=== PATIENT | female | born 1965 | race Caucasian/White ===

== ENCOUNTER 2017-09-07 14:26 | Emergency (ER) | payer MEDICARE, MEDICAID ==
[2013-08-24 11:40] VITALS: BMI 25.6
[~2017-09-07 14:26] MED LIST: MOBIC7.5 MG PO; NORCO 5/325 TAB1 TA1 PO; PERCOCET 10/3251 TA1 PO; PROZAC20 MG PO
[2017-09-07 15:02] LABS: BASOPHILS 0.2 % (0-2); EOSINOPHILS 1.6 % (0-7); HEMATOCRIT 39.2 % (36.0-48.0); HEMOGLOBIN 13.1 g/dL (12-16); IMMATURE GRANULOCYTES 0.2 % (0-5); LYMPHOCYTES 32.7 % (15-50); MCH 31.3 pg (26.0-34.0); MCHC 33.4 g/dL (31.0-37.0); MCV 93.6 fL (80.0-100.0); MEAN PLATELET VOLUME 11.3 fL (7.4-10.4); MONOCYTES 8.5 % (2-11); NEUTROPHILS 56.8 % (40-80); PLATELET COUNT 208 10x3/uL (130-400); RBC 4.19 10x6/uL (4.00-5.40); RDW 12.5 % (11.5-14.5); WBC 5.8 10x3/uL (4.8-10.8)
[2017-09-07 15:37] LABS: ALBUMIN 3.9 g/dL (3.4-5.0); ALKALINE PHOSPHATASE 107 U/L (46-116); ALT (SGPT) 30 U/L (10-68); BILIRUBIN - TOTAL 0.45 mg/dL (0.2-1.3); CALC OSMOLALITY 277 mosm/kg (275-300); CALCIUM 9.3 mg/dL (8.5-10.1); CARBON DIOXIDE 29.7 mmol/L (21.0-32.0); CHLORIDE - SERUM 104 mmol/L (98-107); CREATININE - SERUM 0.7 mg/dL (0.6-1.3); GLUCOSE 89 mg/dL (74-106); POTASSIUM - SERUM 3.4 mmol/L (3.5-5.1); PROTEIN - SERUM 7.8 g/dL (6.4-8.2); SODIUM 141 mmol/L (136-145); UREA NITROGEN 8 mg/dL (7-18); eGFR NON AFRICAN AMERICAN > 90 mL/min (90-120)
[2017-09-07 15:48] LABS: CKMB 0.8 U/L (0.0-3.6); CREATINE KINASE 108 UL (21-215)
[2017-09-07 16:09] LABS: TROPONIN-I < 0.017 ng/mL (0.000-0.060)
[2017-09-07 16:50] LABS: APPEARANCE CLEAR (CLEAR); BILIRUBIN NEGATIVE (NEGATIVE); COLOR YELLOW (YELLOW); GLUCOSE NEGATIVE (NEGATIVE); KETONE NEGATIVE (NEGATIVE); NITRITE NEGATIVE (NEGATIVE); PROTEIN NEGATIVE (NEGATIVE); UROBILINOGEN NORMAL (NORMAL)
[2017-09-07 16:59] LABS: UDS - AMPHET NEGATIVE QUAL (NEGATIVE); UDS - BARB NEGATIVE QUAL (NEGATIVE); UDS - BENZO NEGATIVE QUAL (NEGATIVE); UDS - COCAINE NEGATIVE QUAL (NEGATIVE); UDS - OPIATE NEGATIVE QUAL (NEGATIVE); UDS - PCP NEGATIVE QUAL (NEGATIVE); UDS - THC NEGATIVE QUAL (NEGATIVE)
== END 2017-09-07 18:14 | disposition home or self-care (01) ==
LOC: D.ER 14:26
PROVIDERS: Emergency Medicine
DX: R07.9 Chest pain, unspecified (principal)

== ENCOUNTER 2019-09-28 08:36 | Emergency (ER) | payer MEDICARE, MEDICAID ==
[~2019-09-28] VITALS: Ht 157.5 cm; Wt 63.6 kg
[2019-09-28 08:38] VITALS: Ht 157.5 cm; Wt 63.6 kg
[2019-09-28 09:31] LABS: INR 1.07 (0.85-1.17); PROTIME 13.4 SECONDS (11.6-15.0)
[2019-09-28 09:33] LABS: CALC OSMOLALITY 277 mosm/kg (275-300); CALCIUM 8.8 mg/dL (8.5-10.1); CARBON DIOXIDE 23.9 mmol/L (21.0-32.0); CHLORIDE - SERUM 105 mmol/L (98-107); CREATININE - SERUM 0.7 mg/dL (0.6-1.3); D-DIMER-QUANTITATIVE 0.38 ug/mLFEU (0.20-0.54); GLUCOSE 116 mg/dL (74-106); POTASSIUM - SERUM 3.7 mmol/L (3.5-5.1); SODIUM 139 mmol/L (136-145); UREA NITROGEN 10 mg/dL (7-18); eGFR NON AFRICAN AMERICAN > 90 mL/min (90-120)
[2019-09-28 09:34] LABS: HEMATOCRIT 35.2 % (36.0-48.0); LYMPHOCYTES 18.6 % (15-50); MCH 30.9 pg (26.0-34.0); MCHC 34.1 g/dL (31.0-37.0); MCV 90.7 fL (80.0-100.0); MEAN PLATELET VOLUME 10.3 fL (7.4-10.4); NEUTROPHILS 68.7 % (40-80); PLATELET COUNT 201 10x3/uL (130-400); RBC 3.88 10x6/uL (4.00-5.40); RDW 12.1 % (11.5-14.5); WBC 8.3 10x3/uL (4.8-10.8)
[2019-09-28 09:39] LABS: ALBUMIN 3.9 g/dL (3.4-5.0); ALKALINE PHOSPHATASE 96 U/L (46-116); ALT (SGPT) 21 U/L (10-68); BILIRUBIN - TOTAL 0.75 mg/dL (0.2-1.3); PROTEIN - SERUM 7.5 g/dL (6.4-8.2); URIC ACID 4.4 mg/dL (2.6-7.2)
[2019-09-28] MEDS ORDERED: ULTRAM50 MG PO (10:35)
[2019-09-28 11:20] VITALS: BP 106/58
== END 2019-09-28 11:25 | disposition home or self-care (01) ==
LOC: D.ER 08:36
PROVIDERS: Family Medicine
DX: M17.12 Unilateral primary osteoarthritis, left knee (principal); M25.562 Pain in left knee

== ENCOUNTER → 2021-05-04 09:38 | Outpatient (CLI) | payer MEDICARE, MEDICAID ==
[2019-09-28 08:38] VITALS: BMI 25.6
[~2021-05-04 09:38] MED LIST changes: +ULTRAM50 MG PO
[2021-05-04 10:16] LABS: BASOPHILS 0.7 % (0-2); EOSINOPHILS 1.4 % (0-7); HEMATOCRIT 38.1 % (36.0-48.0); HEMOGLOBIN 12.8 g/dL (12-16); LYMPHOCYTES 28.8 % (15-50); MCH 30.4 pg (26.0-34.0); MCHC 33.5 g/dL (31.0-37.0); MCV 90.6 fL (80.0-100.0); MONOCYTES 7.1 % (2-11); RDW 14.6 % (11.5-14.5); WBC 7.1 10x3/uL (4.8-10.8)
[2021-05-04 10:36] LABS: PLATELET COUNT 293 10x3/uL (130-400)
== END | disposition home or self-care (01) ==
LOC: D.LAB 09:38
PROVIDERS: ATTEND Internal Medicine Gastroenterology
DX: K92.1 Melena (principal)